=== PATIENT | female | born 1965 | race African-American/Black ===

== ENCOUNTER 2019-08-11 18:20 | Emergency (ER) | payer SELFPAY ==
--- NOTE | 2019-08-11 18:58 | RAD ---
XR Ankle Lt 3 View STANDARD History: Injury Comparison: None. Findings: Nondisplaced fracture distal fibula below the syndesmosis. Moderate lateral malleolar soft tissue swelling. Impression: Nondisplaced distal fibular tip fracture.
[2019-08-11] MEDS ORDERED: Acetaminophen 500 MG TAB ONE (19:24)
== END 2019-08-11 19:28 | disposition home or self-care (01) ==
LOC: ERS 18:20
DX: S82.832A Other fracture of upper and lower end of left fibula, initial encounter for closed fracture (principal); B20 Human immunodeficiency virus [HIV] disease; Z85.528 Personal history of other malignant neoplasm of kidney; W10.9XXA Fall (on) (from) unspecified stairs and steps, initial encounter